=== PATIENT | female | born 1970 | race Caucasian/White ===

== ENCOUNTER 2017-03-05 09:42 | Emergency (ER) | payer OTHER ==
[~2017-03-05] VITALS: Ht 162.6 cm; Wt 77.1 kg
[~2017-03-05 09:42] MED LIST: AMBEREN; ATIVAN1 MG; ATIVAN1 MG PO; BENADRYL25 MG PO; CALCIUM 500+D1 EAC2 PO; FISH OIL 1,0001 EAC5 PO; FISHOIL; HYDROCODON-ACE1 EAC7 PO; IBUPROFEN 600600 M1 PO; LAMICTAL100 MG PO; LEXAPRO 10 MG T10 M2 PO; MULTIVITAMINS; NAPROSYN500 MG PO; NORCO 5-325 TA1 EAC1 PO; NORCO 5-325 TA1 EACH PO; PHENERGAN 25 MG25 MG PO; PRENATAL; PRENATAL VITAM1 EAC6 PO; PROVENTIL HFA6.7 G1 INH; TUMS PO; TYLENOL EX-STR500 M2 PO; XANAX XR1 MG PO; ZOFRAN4 MG PO; omega 3
[2017-03-05] MEDS ORDERED: NORCO 5-325 TA1 EACH PO (10:52)
[2017-03-05 11:26] VITALS: BP 127/65
== END 2017-03-05 11:27 | disposition home or self-care (01) ==
LOC: M.ERS 09:42
DX: S93.409A Sprain of unspecified ligament of unspecified ankle, initial encounter (principal); F17.210 Nicotine dependence, cigarettes, uncomplicated; Z88.8 Allergy status to other drugs, medicaments and biological substances; Z90.49 Acquired absence of other specified parts of digestive tract; Z90.710 Acquired absence of both cervix and uterus; X58.XXXA Exposure to other specified factors, initial encounter; Y93.89 Activity, other specified; Y92.89 Other specified places as the place of occurrence of the external cause; Y99.8 Other external cause status

== ENCOUNTER 2017-03-06 18:05 | Emergency (ER) | payer OTHER ==
[~2017-03-06] VITALS: Ht 162.6 cm; Wt 77.1 kg
[2017-03-06 20:38] LABS: ABSOLUTE EOSINOPHILS 0.1 thou/uL (0.0-0.7); ABSOLUTE LYMPHOCYTES 2.4 thou/uL (0.8-5.3); ABSOLUTE MONOCYTES 0.4 thou/uL (0.0-1.2); ABSOLUTE NEUTROPHILS 3.6 thou/uL (1.6-8.1); BASOPHILS 0.6 %; EOSINOPHILS 1.2 %; HEMATOCRIT 37.1 % (37.0-47.0); HEMOGLOBIN 12.6 gm/dL (12.0-15.0); MCH 28.6 pg (26.0-34.0); MCHC 33.9 g/dL (28.0-37.0); MCV 84.5 fL (80.0-100.0); MONOCYTES 6.8 %; MPV 7.3 fl. (7.2-11.1); NUCLEATED RBCS 0 /100WBC; PLATELET COUNT* 234 thou/uL (150-400); POLYS 54.4 %; RBC 4.39 mil/uL (4.20-5.00); RDW-CV 12.2 % (10.5-14.5); WBC 6.6 thou/uL (4.0-11.0)
[2017-03-06 20:59] LABS: CREATININE 0.7 mg/dL (0.6-1.3); POTASSIUM 3.7 mmol/L (3.5-5.1)
[2017-03-06 21:12] LABS: ALBUMIN 3.9 g/dL (3.4-5.0); TOTAL BILIRUBIN 0.2 mg/dL (<0.1-1.0); TOTAL PROTEIN 7.7 g/dL (6.4-8.2)
[2017-03-06 21:27] VITALS: BP 125/78
== END 2017-03-06 21:28 | disposition still patient (30) ==
LOC: M.ERS 18:05
PROVIDERS: Physician Assistant
DX: T26.11XA Burn of cornea and conjunctival sac, right eye, initial encounter (principal); F17.210 Nicotine dependence, cigarettes, uncomplicated; Z90.49 Acquired absence of other specified parts of digestive tract; Z90.710 Acquired absence of both cervix and uterus; Z88.8 Allergy status to other drugs, medicaments and biological substances; X15.0XXA Contact with hot stove (kitchen), initial encounter; Y93.89 Activity, other specified; Y92.89 Other specified places as the place of occurrence of the external cause; Y99.8 Other external cause status

== ENCOUNTER 2018-05-30 15:04 | Emergency (ER) | payer OTHER ==
[~2018-05-30] VITALS: Ht 175.3 cm; Wt 88.1 kg
[2018-05-30] MEDS ORDERED: ZANAFLEX2 M1 PO (15:11)
[2018-05-30 15:48] LABS: ABSOLUTE EOSINOPHILS 0.1 thou/uL (0.0-0.7); ABSOLUTE LYMPHOCYTES 1.8 thou/uL (0.8-5.3); ABSOLUTE MONOCYTES 0.3 thou/uL (0.0-1.2); ABSOLUTE NEUTROPHILS 3.5 thou/uL (1.6-8.1); BASOPHILS 0.7 %; EOSINOPHILS 1.1 %; HEMATOCRIT 37.4 % (37.0-47.0); HEMOGLOBIN 12.6 gm/dL (12.0-15.0); LYMPHOCYTES 31.3 %; MCH 27.8 pg (26.0-34.0); MCHC 33.8 g/dL (28.0-37.0); MCV 82.4 fL (80.0-100.0); MPV 7.6 fl. (7.2-11.1); NUCLEATED RBCS 0 /100WBC; PLATELET COUNT* 241 thou/uL (150-400); POLYS 60.9 %; RBC 4.55 mil/uL (4.20-5.00); RDW-CV 12.5 % (10.5-14.5); WBC 5.8 thou/uL (4.0-11.0)
[2018-05-30 15:55] LABS: APTT 26.9 Seconds (25.0-31.3); PROTIME 9.9 Seconds (9.20-11.50)
[2018-05-30 16:03] LABS: ANION GAP 12 mmol/L (7-16); BUN 10 mg/dL (7-18); CHLORIDE 105 mmol/L (98-107); CO2 26 mmol/L (21-32); CREATININE 0.8 mg/dL (0.6-1.3); GLUCOSE 106 mg/dL (70-99); SODIUM 143 mmol/L (136-145); TROPONIN-I LEVEL <0.06 ng/mL (<0.06)
[2018-05-30 16:07] LABS: ALBUMIN 3.6 g/dL (3.4-5.0); ALKALINE PHOSPHATASE 152 U/L (46-116); CK-MB MASS 0.8 ng/mL (<0.5-3.6); LIPASE 225 U/L (73-393); NT-PRO BRAIN NAT PEPTIDE 93 pg/mL (<300); SGOT 14 U/L (15-37); SGPT 24 U/L (30-65); TOTAL BILIRUBIN 0.3 mg/dL (<0.1-1.0); TOTAL PROTEIN 7.7 g/dL (6.4-8.2)
[2018-05-30] MEDS ORDERED: NAPROSYN500 MG PO (18:20)
[2018-05-30] MEDS ORDERED: NORCO 5-325 TA1 EACH PO (18:20)
[2018-05-30 18:27] VITALS: BP 147/75
--- NOTE | 2018-05-31 10:47 | EKG ---
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1970 Requested By: Isacc Harmon Order Number: [id number] MD: Darius Muniz Measurements Intervals [place] Rate: 85 P: 58 NE: 161 QRS: 36 QRSD: 99 T: 2 QT: 377 QTc: 449 Interpretive Statements Sinus rhythm Borderline T wave abnormalities Baseline wander in lead(s) V3 Compared to ECG 04/14/2011 17:28:15 T-wave abnormality still present Electronically Signed On 05-31-2018 10:46:54 CDT by Darius Muniz [email or web address] <ELECTRONICALLY SIGNED> By: Darius Muniz MD, [facility] 05/31/18 1046 1509 1509 Darius Muniz MD, FACC /EPI
== END 2018-05-30 18:32 | disposition home or self-care (01) ==
LOC: M.ERS 15:04
PROVIDERS: Emergency Medicine
DX: S20.211A Contusion of right front wall of thorax, initial encounter (principal); F17.210 Nicotine dependence, cigarettes, uncomplicated; Z90.49 Acquired absence of other specified parts of digestive tract; Z90.710 Acquired absence of both cervix and uterus; Z88.8 Allergy status to other drugs, medicaments and biological substances; W01.0XXA Fall on same level from slipping, tripping and stumbling without subsequent striking against object, initial encounter; Y93.89 Activity, other specified; Y92.89 Other specified places as the place of occurrence of the external cause; Y99.8 Other external cause status

== ENCOUNTER 2018-08-31 16:00 | Emergency (ER) | payer OTHER ==
[~2018-08-31] VITALS: Ht 162.6 cm; Wt 81.7 kg
[~2018-08-31 16:00] MED LIST changes: +ZANAFLEX2 M1 PO
[2018-08-31] MEDS ORDERED: MEDROL DOSPAK21 TA1 PO (16:16)
[2018-08-31] MEDS ORDERED: HYDROCODON-ACE1 EAC7 PO (16:36)
[2018-08-31 16:38] VITALS: BP 116/60
== END 2018-08-31 16:39 | disposition home or self-care (01) ==
LOC: M.ERS 16:00
DX: M77.11 Lateral epicondylitis, right elbow (principal); F17.210 Nicotine dependence, cigarettes, uncomplicated; Z90.49 Acquired absence of other specified parts of digestive tract; Z90.710 Acquired absence of both cervix and uterus; Z79.899 Other long term (current) drug therapy; Z88.8 Allergy status to other drugs, medicaments and biological substances

== ENCOUNTER 2018-10-31 07:35 | Emergency (ER) | payer OTHER ==
[~2018-10-31] VITALS: Ht 162.6 cm; Wt 83.9 kg
--- NOTE | ~2018-10-31 | EKG ---
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1970 Requested By: Carlos Butcher Order Number: [id number] MD: Measurements Intervals [place] Rate: 68 P: 31 [place]: 183 QRS: 4 QRSD: 100 T: 8 QT: 424 QTc: 451 Interpretive Statements Sinus rhythm Low voltage, precordial leads RSR' in V1 or V2, right VCD or RVH Baseline wander in lead(s) V1,V2 Compared to ECG 05/30/2018 15:09:48 Low QRS voltage now present Right ventricular hypertrophy now present RSR' in V1 or V2 now present T-wave abnormality no longer present [email or web address] By: [id number] Epiphany Epiphany, /KARTHIK
[~2018-10-31 07:35] MED LIST changes: +MEDROL DOSPAK21 TA1 PO
[2018-10-31 09:00] LABS: ABSOLUTE EOSINOPHILS 0.1 thou/uL (0.0-0.7); ABSOLUTE LYMPHOCYTES 1.8 thou/uL (0.8-5.3); ABSOLUTE MONOCYTES 0.4 thou/uL (0.0-1.2); ABSOLUTE NEUTROPHILS 3.8 thou/uL (1.6-8.1); BASOPHILS 0.7 %; EOSINOPHILS 1.8 %; HEMATOCRIT 36.8 % (37.0-47.0); HEMOGLOBIN 12.6 gm/dL (12.0-15.0); MCH 28.5 pg (26.0-34.0); MCHC 34.3 g/dL (28.0-37.0); MCV 83.2 fL (80.0-100.0); MONOCYTES 6.8 %; MPV 7.2 fl. (7.2-11.1); NUCLEATED RBCS 0 /100WBC; PLATELET COUNT* 251 thou/uL (150-400); POLYS 61.7 %; RBC 4.43 mil/uL (4.20-5.00); RDW-CV 12.5 % (10.5-14.5); WBC 6.1 thou/uL (4.0-11.0)
[2018-10-31 09:11] LABS: ANION GAP 8 mmol/L (7-16); BUN 10 mg/dL (7-18); CHLORIDE 103 mmol/L (98-107); CO2 28 mmol/L (21-32); CREATININE 0.7 mg/dL (0.6-1.3); GLUCOSE 95 mg/dL (70-99); POTASSIUM 4.1 mmol/L (3.5-5.1); SODIUM 139 mmol/L (136-145)
[2018-10-31 09:19] LABS: ALBUMIN 3.8 g/dL (3.4-5.0); ALKALINE PHOSPHATASE 143 U/L (46-116); LIPASE 225 U/L (73-393); NT-PRO BRAIN NAT PEPTIDE 49 pg/mL (<300); SGOT 18 U/L (15-37); SGPT 30 U/L (30-65); TOTAL BILIRUBIN 0.3 mg/dL (<0.1-1.0); TOTAL PROTEIN 7.9 g/dL (6.4-8.2); TROPONIN-I LEVEL <0.06 ng/mL (<0.06)
[2018-10-31] MEDS ORDERED: NORCO 5-325 TA1 EAC1 PO (11:11)
[2018-10-31 11:26] VITALS: BP 107/59
--- NOTE | 2018-11-01 14:54 | EKG ---
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1970 Requested By: Carlos Butcher Order Number: [id number] MD: Neto Summers Measurements Intervals [place] Rate: 69 P: 38 [place]: 174 QRS: 19 QRSD: 93 T: 29 QT: 411 QTc: 441 Interpretive Statements Sinus rhythm Low voltage, precordial leads RSR' in V1 or V2, probably normal variant Compared to ECG 05/30/2018 15:09:48 Low QRS voltage now present RSR' in V1 or V2 now present T-wave abnormality no longer present Electronically Signed On 11-01-2018 14:54:37 CDT by Neto Summers [email or web address] <ELECTRONICALLY SIGNED> By: Neto Summers MD, [facility] 11/01/18 1454 0739 0739 Neto Summers MD, [facility] /EPI
--- NOTE | 2018-11-01 14:59 | EKG ---
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1970 Requested By: Carlos Butcher Order Number: [id number] MD: Neto Summers Measurements Intervals [place] Rate: 68 P: 31 [place]: 183 QRS: 4 QRSD: 100 T: 8 QT: 424 QTc: 451 Interpretive Statements Sinus rhythm Low voltage, precordial leads RSR' in V1 or V2, right VCD or RVH Baseline wander in lead(s) V1,V2 Compared to ECG 05/30/2018 15:09:48 Low QRS voltage now present RSR' in V1 or V2 now present T-wave abnormality no longer present Electronically Signed On 11-01-2018 14:59:28 CDT by Neto Summers [email or web address] <ELECTRONICALLY SIGNED> By: Neto Summers MD, [facility] 11/01/18 1459 1042 1042 Neto Summers MD, FAC /EPI
== END 2018-10-31 11:26 | disposition home or self-care (01) ==
LOC: M.ERS 07:35
PROVIDERS: Emergency Medicine Emergency Medical Services
DX: R07.89 Other chest pain (principal); Z88.8 Allergy status to other drugs, medicaments and biological substances; F17.210 Nicotine dependence, cigarettes, uncomplicated; Z90.49 Acquired absence of other specified parts of digestive tract; Z90.710 Acquired absence of both cervix and uterus

== ENCOUNTER 2020-07-06 21:22 | Emergency (ER) | payer OTHER ==
[~2020-07-06] VITALS: Ht 160 cm; Wt 86.2 kg
[2020-07-06 23:50] VITALS: BP 131/78
== END 2020-07-06 23:50 | disposition home or self-care (01) ==
LOC: M.ERS 21:22
DX: S90.02XA Contusion of left ankle, initial encounter (principal); M79.7 Fibromyalgia; F17.210 Nicotine dependence, cigarettes, uncomplicated; Z88.8 Allergy status to other drugs, medicaments and biological substances; Z90.49 Acquired absence of other specified parts of digestive tract; Z90.710 Acquired absence of both cervix and uterus; W22.8XXA Striking against or struck by other objects, initial encounter; Y93.89 Activity, other specified; Y92.89 Other specified places as the place of occurrence of the external cause; Y99.8 Other external cause status